=== PATIENT | female | born 1980 | race Caucasian/White ===

== ENCOUNTER 2017-11-21 08:44 | Outpatient (CLI) | payer OTHER ==
[~2017-11-21 08:44] MED LIST: ONDA4TAB6 PO
== END 2017-11-21 23:59 | disposition home or self-care (01) ==
LOC: RAD 08:44
PROVIDERS: ATTEND Nurse Practitioner Obstetrics & Gynecology
DX: O09.92 Supervision of high risk pregnancy, unspecified, second trimester (principal); Z3A.14 14 weeks gestation of pregnancy
CPT/HCPCS: 76801

== ENCOUNTER 2017-11-21 08:59 | Outpatient (CLI) | payer OTHER ==
[2017-11-21 11:25] LABS: BASOPHILS % (AUTO) 0.7 % (0-1); EOSINOPHILS # (AUTO) 0.2 X10'3 (0-0.9); EOSINOPHILS % (AUTO) 3.6 % (0-6); HEMATOCRIT 39.7 % (35.0-45.0); HEMOGLOBIN 13.7 g/dl (12.0-16.0); LYMPHOCYTES # (AUTO) 1.7 X10'3 (1.1-4.8); LYMPHOCYTES % (AUTO) 25.6 % (21-51); MEAN CORPUSCULAR HEMOGLOBIN 32.1 PG (27.0-31.0); MEAN CORPUSCULAR HGB CONC 34.7 % (33.0-36.5); MEAN CORPUSCULAR VOLUME 92.6 FL (78-98); MEAN PLATELET VOLUME 9.5 FL (7.4-10.4); MONOCYTES # (AUTO) 0.5 X10'3 (0-0.9); MONOCYTES % (AUTO) 7.4 % (2-12); NEUTROPHILS # (AUTO) 4.3 X10'3 (1.8-7.7); NEUTROPHILS % (AUTO) 62.7 % (42-75); PLATELET COUNT 180 X10'3 (140-440); RED BLOOD COUNT 4.28 X10'6 (4.20-5.60); RED CELL DISTRIBUTION WIDTH 12.5 % (11.5-14.5); WHITE BLOOD COUNT 6.8 X10'3 (4.5-11.0)
[2017-11-22 08:48] LABS: RPR Non Reactive (Non Reactive)
[2017-11-22 14:02] LABS: RUBELLA ANTIBODIES, IGG 6.49 index (Immune >0.99)
[2017-11-22 15:23] LABS: HBSAG SCREEN Negative (Negative)
== END 2017-11-21 23:59 | disposition home or self-care (01) ==
LOC: LAB 08:59
PROVIDERS: ATTEND Psychiatry & Neurology Neurology
DX: G40.109 Localization-related (focal) (partial) symptomatic epilepsy and epileptic syndromes with simple partial seizures, not intractable, without status epilepticus (principal)
CPT/HCPCS: 36415; 82607; 83036; 84439; 84443; 85025; 86592; 86762; 86885; 86900; 86901; 87340

== ENCOUNTER 2017-11-21 15:01 | Outpatient (CLI) | payer OTHER | END 2017-11-21 23:59 | disposition home or self-care (01) | LOC: LAB 15:01 | PROVIDERS: ATTEND Nurse Practitioner Obstetrics & Gynecology | DX: O20.0 Threatened abortion (principal); Z3A.00 Weeks of gestation of pregnancy not specified | CPT/HCPCS: 36415; 84702 ==

== ENCOUNTER 2017-11-27 15:34 | Outpatient (CLI) | payer OTHER | END 2017-11-27 23:59 | disposition home or self-care (01) | LOC: RAD 15:34 | PROVIDERS: ATTEND Nurse Practitioner Obstetrics & Gynecology | DX: O20.0 Threatened abortion (principal) | CPT/HCPCS: 76801 ==

== ENCOUNTER 2018-02-21 16:09 | Outpatient (CLI) | payer OTHER | END 2018-02-21 23:59 | disposition home or self-care (01) | LOC: LAB 16:09 | PROVIDERS: ATTEND Psychiatry & Neurology Neurology | DX: Z00.00 Encounter for general adult medical examination without abnormal findings (principal); G40.109 Localization-related (focal) (partial) symptomatic epilepsy and epileptic syndromes with simple partial seizures, not intractable, without status epilepticus | CPT/HCPCS: 36415; 82607; 84439; 84443 ==

== ENCOUNTER 2018-04-10 14:11 | Outpatient (CLI) | payer OTHER ==
[2018-04-10 14:57] LABS: CLARITY,URINE CLEAR (Clear); COLOR,URINE YELLOW (Yellow); GLUCOSE, URINE NEGATIVE (Neg); KETONES,URINE NEGATIVE (Neg); LEUKOCYTE ESTERASE ,URINE NEGATIVE (Neg); NITRITES, URINE NEGATIVE (Neg); OCCULT BLOOD,URINE NEGATIVE (Neg); PH,URINE 5.5 (4.8-8.0); PROTEIN,URINE NEGATIVE (Neg); UA COLLECTION TYPE CLN CATCH MIDSTREAM; UROBILINOGEN,URINE 0.2 E.U/dL (0.2-1.0)
[2018-04-10 15:07] LABS: BASOPHILS % (AUTO) 0.5 % (0-1); EOSINOPHILS # (AUTO) 0.3 X10'3 (0-0.9); EOSINOPHILS % (AUTO) 3.1 % (0-6); HEMATOCRIT 38.4 % (35.0-45.0); HEMOGLOBIN 13.1 g/dl (12.0-16.0); LYMPHOCYTES # (AUTO) 2.3 X10'3 (1.1-4.8); LYMPHOCYTES % (AUTO) 26.7 % (21-51); MEAN CORPUSCULAR HEMOGLOBIN 31.8 PG (27.0-31.0); MEAN CORPUSCULAR HGB CONC 34.2 % (33.0-36.5); MEAN CORPUSCULAR VOLUME 92.9 FL (78-98); MEAN PLATELET VOLUME 9.5 FL (7.4-10.4); MONOCYTES # (AUTO) 0.7 X10'3 (0-0.9); MONOCYTES % (AUTO) 7.8 % (2-12); NEUTROPHILS # (AUTO) 5.4 X10'3 (1.8-7.7); NEUTROPHILS % (AUTO) 61.9 % (42-75); PLATELET COUNT 206 X10'3 (140-440); RED BLOOD COUNT 4.13 X10'6 (4.20-5.60); RED CELL DISTRIBUTION WIDTH 12.3 % (11.5-14.5); WHITE BLOOD COUNT 8.7 X10'3 (4.5-11.0)
[2018-04-10 15:14] LABS: ALANINE AMINOTRANSFERASE 26 U/L (12-78); ALBUMIN 3.7 G/DL (3.4-5.0); ALKALINE PHOSPHATASE 71 IU/L (46-116); ANION GAP 8 (8-16); ASPARTATE AMINO TRANSFERASE 15 U/L (10-37); BILIRUBIN,TOTAL 0.3 MG/DL (0.1-1.0); BLOOD UREA NITROGEN 9 MG/DL (7-18); BUN/CREATININE RATIO 11.8 (6.6-38.0); CALCIUM 8.5 MG/DL (8.5-10.1); CHLORIDE 106 MMOL/L (99-107); CREATININE 0.76 MG/DL (0.40-0.90); GLUCOSE 99 MG/DL (70-104); POTASSIUM 3.3 MMOL/L (3.5-5.1); SODIUM 142 MMOL/L (135-145); TOTAL CARBON DIOXIDE 27.8 MMOL/L (24-32); TOTAL PROTEIN 7.4 G/DL (6.4-8.2); eGFR 86 ML/MIN
== END 2018-04-10 23:59 | disposition home or self-care (01) ==
LOC: LAB 14:11
PROVIDERS: ATTEND Family Medicine
DX: N20.2 Calculus of kidney with calculus of ureter (principal)
CPT/HCPCS: 36415; 80053; 81003; 85025

== ENCOUNTER 2018-04-18 15:42 | Outpatient (CLI) | payer OTHER | END 2018-04-18 23:59 | disposition home or self-care (01) | LOC: RAD 15:42 | PROVIDERS: ATTEND Family Medicine | DX: N20.2 Calculus of kidney with calculus of ureter (principal); F17.200 Nicotine dependence, unspecified, uncomplicated | CPT/HCPCS: 76775 ==

== ENCOUNTER 2019-08-31 11:15 | Outpatient (CLI) | payer OTHER ==
[2019-08-31 11:57] LABS: EOSINOPHILS # (AUTO) 0.2 X10'3 (0-0.9); HEMOGLOBIN 14.5 g/dl (12.0-16.0); LYMPHOCYTES # (AUTO) 2.1 X10'3 (1.1-4.8); RED CELL DISTRIBUTION WIDTH 12.2 % (11.5-14.5)
[2019-08-31 11:58] LABS: BASOPHILS # (AUTO) 0.1 X10'3 (0-0.2); EOSINOPHILS % (AUTO) 3.2 % (0-6); HEMATOCRIT 41.2 % (35.0-45.0); LYMPHOCYTES % (AUTO) 28.4 % (21-51); MEAN CORPUSCULAR HEMOGLOBIN 31.6 PG (27.0-31.0); MEAN CORPUSCULAR HGB CONC 35.1 g/dL (33.0-36.5); MEAN CORPUSCULAR VOLUME 89.9 FL (78-98); MEAN PLATELET VOLUME 9.4 FL (7.4-10.4); MONOCYTES # (AUTO) 0.7 X10'3 (0-0.9); MONOCYTES % (AUTO) 9.1 % (2-12); NEUTROPHILS # (AUTO) 4.2 X10'3 (1.8-7.7); NEUTROPHILS % (AUTO) 58.3 % (42-75); PLATELET COUNT 201 X10'3 (140-440); RED BLOOD COUNT 4.58 X10'6 (4.20-5.60); WHITE BLOOD COUNT 7.3 X10'3 (4.5-11.0)
[2019-08-31 12:07] LABS: RHEUM FACTOR QUAL REFLEX TITER NEGATIVE (Neg)
[2019-08-31 12:13] LABS: ALANINE AMINOTRANSFERASE 24 U/L (12-78); ALBUMIN 3.7 G/DL (3.4-5.0); ALKALINE PHOSPHATASE 83 IU/L (46-116); ANION GAP 10 (8-16); ASPARTATE AMINO TRANSFERASE 18 U/L (10-37); BILIRUBIN,TOTAL 0.3 MG/DL (0.1-1.0); BLOOD UREA NITROGEN 11 MG/DL (7-18); BUN/CREATININE RATIO 14.3 (6.6-38.0); C-REACTIVE PROTEIN 0.28 MG/DL (0.0-0.5); CALCIUM 8.5 MG/DL (8.5-10.1); CHLORIDE 106 MMOL/L (99-107); CHOL/HDL RATIO 3.1 (0.00-4.99); CHOLESTEROL 159 MG/DL (0-200); CREATININE 0.77 MG/DL (0.40-0.90); GLUCOSE 85 MG/DL (70-104); HDL CHOLESTEROL 51 MG/DL (35-60); LDL CHOLESTEROL 100 MG/DL (50-100); MAGNESIUM 1.9 MG/DL (1.5-2.4); POTASSIUM 4.1 MMOL/L (3.5-5.1); SODIUM 140 MMOL/L (135-145); TOTAL CARBON DIOXIDE 24.4 MMOL/L (24-32); TOTAL PROTEIN 7.5 G/DL (6.4-8.2); TRIGLYCERIDES 39 MG/DL (20-135); eGFR 84 ML/MIN
[2019-08-31 18:33] LABS: CLARITY,URINE CLEAR (Clear); COLOR,URINE YELLOW (Yellow); GLUCOSE, URINE NEGATIVE (Neg); KETONES,URINE NEGATIVE (Neg); LEUKOCYTE ESTERASE ,URINE NEGATIVE (Neg); NITRITES, URINE NEGATIVE (Neg); OCCULT BLOOD,URINE NEGATIVE (Neg); PH,URINE 5.5 (4.8-8.0); PROTEIN,URINE NEGATIVE (Neg); UA COLLECTION TYPE CLN CATCH MIDSTREAM; UROBILINOGEN,URINE 0.2 E.U/dL (0.2-1.0)
[2019-09-03 11:10] LABS: MICROALB/CRT, RATIO 8.7 mg/g creat (0.0-30.0)
[2019-09-03 15:18] LABS: ANTINUCLEAR ANTIBODIES Negative (Negative)
== END 2019-08-31 23:59 | disposition home or self-care (01) ==
LOC: LAB 11:15
PROVIDERS: ATTEND Family Medicine
DX: N20.2 Calculus of kidney with calculus of ureter (principal); G40.909 Epilepsy, unspecified, not intractable, without status epilepticus; R76.8 Other specified abnormal immunological findings in serum; J06.9 Acute upper respiratory infection, unspecified
CPT/HCPCS: 36415; 80053; 80061; 81003; 82043; 82570; 83735; 84550; 85025; 85651; 86038; 86140; 86430

== ENCOUNTER 2019-12-09 15:20 | Outpatient (CLI) | payer OTHER | END 2019-12-09 23:59 | disposition home or self-care (01) | LOC: RAD 15:20 | PROVIDERS: ATTEND Family Medicine | DX: M16.10 Unilateral primary osteoarthritis, unspecified hip (principal); G57.93 Unspecified mononeuropathy of bilateral lower limbs | CPT/HCPCS: 72110; 72148; 72220 ==

== ENCOUNTER 2020-03-16 10:47 | Outpatient (CLI) | payer OTHER | END 2020-03-16 23:59 | disposition home or self-care (01) | LOC: LAB 10:47 | PROVIDERS: ATTEND Psychiatry & Neurology Neurology | DX: G40.109 Localization-related (focal) (partial) symptomatic epilepsy and epileptic syndromes with simple partial seizures, not intractable, without status epilepticus (principal) | CPT/HCPCS: 36415; 82542 ==

== ENCOUNTER 2020-06-04 11:32 | Emergency (ER) | payer OTHER ==
[~2020-06-04] VITALS: Ht 165.1 cm; Wt 90.9 kg
[2020-06-04 13:16] VITALS: BP 118/70
== END 2020-06-04 13:18 | disposition home or self-care (01) ==
LOC: ER 11:33
DX: J06.9 Acute upper respiratory infection, unspecified (principal); Z20.828 Contact with and (suspected) exposure to other viral communicable diseases; M19.90 Unspecified osteoarthritis, unspecified site; G89.29 Other chronic pain; Z86.69 Personal history of other diseases of the nervous system and sense organs; Z72.89 Other problems related to lifestyle; Z79.899 Other long term (current) drug therapy
CPT/HCPCS: 36415; 99282

== ENCOUNTER 2020-07-09 12:08 | Outpatient (CLI) | payer BC | END 2020-07-09 23:59 | disposition home or self-care (01) | LOC: LAB 12:08 | PROVIDERS: ATTEND Psychiatry & Neurology Neurology | DX: G40.109 Localization-related (focal) (partial) symptomatic epilepsy and epileptic syndromes with simple partial seizures, not intractable, without status epilepticus (principal) | CPT/HCPCS: 36415; 80203; 82542 ==

== ENCOUNTER → 2020-11-19 | Outpatient (CLI) | payer BC ==
[2020-11-19 17:07] LABS: BASOPHILS % (AUTO) 0.6 % (0-1); EOSINOPHILS # (AUTO) 0.2 X10'3 (0-0.9); EOSINOPHILS % (AUTO) 2.5 % (0-6); HEMATOCRIT 45.3 % (35.0-45.0); HEMOGLOBIN 15.4 g/dl (12.0-16.0); LYMPHOCYTES # (AUTO) 1.8 X10'3 (1.1-4.8); LYMPHOCYTES % (AUTO) 27.4 % (21-51); MEAN CORPUSCULAR HEMOGLOBIN 30.8 PG (27.0-31.0); MEAN CORPUSCULAR VOLUME 90.5 FL (78-98); MEAN PLATELET VOLUME 9.5 FL (7.4-10.4); MONOCYTES # (AUTO) 0.6 X10'3 (0-0.9); NEUTROPHILS # (AUTO) 3.9 X10'3 (1.8-7.7); NEUTROPHILS % (AUTO) 60.5 % (42-75); PLATELET COUNT 212 X10'3 (140-440); RED CELL DISTRIBUTION WIDTH 11.8 % (11.5-14.5); WHITE BLOOD COUNT 6.5 X10'3 (4.5-11.0)
[2020-11-19 17:08] LABS: RHEUM FACTOR QUAL REFLEX TITER NEGATIVE (Neg)
[2020-11-19 17:14] LABS: COLOR,URINE YELLOW (Yellow); GLUCOSE, URINE NEGATIVE (Neg); KETONES,URINE 15 mg/dl (Neg); LEUKOCYTE ESTERASE ,URINE NEGATIVE (Neg); NITRITES, URINE NEGATIVE (Neg); OCCULT BLOOD,URINE NEGATIVE (Neg); PH,URINE 6.5 (4.8-8.0); PROTEIN,URINE NEGATIVE (Neg)
[2020-11-19 17:19] LABS: UA COLLECTION TYPE CLN CATCH MIDSTREAM
[2020-11-19 17:24] LABS: ALANINE AMINOTRANSFERASE 19 U/L (12-78); ALBUMIN 3.8 G/DL (3.4-5.0); ALBUMIN/GLOBULIN RATIO 0.9 (1.1-1.5); ALKALINE PHOSPHATASE 99 IU/L (46-116); ANION GAP 8 (8-16); ASPARTATE AMINO TRANSFERASE 15 U/L (10-37); BILIRUBIN,TOTAL 0.3 MG/DL (0.1-1.0); BLOOD UREA NITROGEN 12 MG/DL (7-18); BUN/CREATININE RATIO 14.6 (6.6-38.0); C-REACTIVE PROTEIN 0.21 MG/DL (0.0-0.5); CALCIUM 8.8 MG/DL (8.5-10.1); CHLORIDE 108 MMOL/L (99-107); CHOL/HDL RATIO 3.8 (0.00-4.99); CHOLESTEROL 197 MG/DL (0-200); CREATININE 0.82 MG/DL (0.40-0.90); GLUCOSE 99 MG/DL (70-104); HDL CHOLESTEROL 52 MG/DL (35-60); LDL CHOLESTEROL 132 MG/DL (50-100); MAGNESIUM 2.3 MG/DL (1.5-2.4); POTASSIUM 3.4 MMOL/L (3.5-5.1); SODIUM 143 MMOL/L (135-145); TOTAL CARBON DIOXIDE 26.8 MMOL/L (24-32); TRIGLYCERIDES 66 MG/DL (20-135); eGFR 77 ML/MIN
[2020-11-19 17:24] LABS: CLARITY,URINE SLIGHTLY CLOUDY (Clear)
[2020-11-19 17:25] LABS: BACTERIA,URINE 2+ /HPF (Neg); MUCUS STRANDS MANY /LPF (Neg); RBC,URINE NONE SEEN /HPF (0-2); SQUAMOUS EPITHELIAL CELL,UR MANY /LPF (FEW); WBC,URINE 0-4 /HPF (0-4)
[2020-11-21 16:02] LABS: MICROALB/CRT, RATIO 6 mg/g creat (0-29)
[2020-11-23 15:49] LABS: ANTINUCLEAR ANTIBODIES Negative (Negative)
== END | disposition home or self-care (01) ==
LOC: LAB 15:32
PROVIDERS: ATTEND Family Medicine
DX: Z00.01 Encounter for general adult medical examination with abnormal findings (principal); G40.909 Epilepsy, unspecified, not intractable, without status epilepticus; J06.9 Acute upper respiratory infection, unspecified; R76.8 Other specified abnormal immunological findings in serum
CPT/HCPCS: 36415; 80053; 80061; 81001; 82043; 82570; 83735; 83970; 84439; 84443; 84550; 85025; 85651; 86038; 86140; 86430

== ENCOUNTER 2020-11-25 06:23 | Emergency (ER) | payer BC ==
[~2020-11-25] VITALS: Ht 165.1 cm; Wt 90.9 kg
--- NOTE | 2020-11-25 08:22 | NUR ---
called patient's cell phone ([phone]) as she told me that she would be waiting out in her car in the parking lot for the results, the patient had left and went home because she had to use the restroom. Gave the patient the result over the phone. The patient was unable to sign the discharge papers because she had left.
--- NOTE | 2020-11-25 08:53 | NUR ---
patient came back because [facility] wanted a different COVID test ran, so when she came back I had the patient sign the original discharge paperwork.
== END 2020-11-25 08:28 | disposition home or self-care (01) ==
LOC: ER 06:24
DX: R43.9 Unspecified disturbances of smell and taste (principal); Z20.822 Contact with and (suspected) exposure to COVID-19; R51.9 Headache, unspecified; M19.90 Unspecified osteoarthritis, unspecified site; G89.29 Other chronic pain; Z72.89 Other problems related to lifestyle
CPT/HCPCS: 87635; 99283; C9803

== ENCOUNTER 2020-12-09 15:19 | Outpatient (CLI) | payer BC | END 2020-12-09 23:59 | disposition home or self-care (01) | LOC: RAD 15:19 | PROVIDERS: ATTEND Family Medicine | DX: M25.512 Pain in left shoulder (principal) | CPT/HCPCS: 73030 ==

== ENCOUNTER → 2021-06-11 | Outpatient (CLI) | payer BC ==
[2021-06-13 09:16] LABS: FSH, SERUM 4.2 mIU/mL (.); PROGESTERONE 0.1 ng/mL (.); PROLACTIN 15.5 ng/mL (4.8-23.3)
[2021-06-15 17:32] LABS: ESTRONE, SERUM 122 pg/mL (.)
== END | disposition home or self-care (01) ==
LOC: LAB 15:57
DX: N95.1 Menopausal and female climacteric states (principal); M25.532 Pain in left wrist; M25.531 Pain in right wrist; M79.641 Pain in right hand; M79.642 Pain in left hand
CPT/HCPCS: 36415; 73110; 73130; 82670; 82679; 83001; 84144; 84146; 84402; 84403; 84439; 84443

== ENCOUNTER 2022-01-24 13:58 | Day surgery (SDC) | payer BC ==
[~2022-01-24] VITALS: Ht 165.1 cm; Wt 100.0 kg
[2022-01-24 14:11] VITALS: BP 104/60
[2022-01-24] MEDS ORDERED: ZONI100C31 PO (14:46)
[2022-01-24] MEDS ORDERED: LAMO200T51 PO (14:46)
[2022-01-24] MEDS ORDERED: SERT-434 PO (14:46)
[2022-01-24] MEDS ORDERED: MULT-1085 PO (14:46)
[2022-01-24] MEDS ORDERED: ASCO500C17 PO (14:47)
[2022-01-24] MEDS ORDERED: FOLI0.8C PO (14:48)
[2022-01-24] MEDS ORDERED: fentaNYL/PF 50MCG/1 ML 2ML syringe ONE (15:09)
[2022-01-24] MEDS ORDERED: MIDAZolam 1 MG/ML 5ML VIAL ONE (15:10)
[2022-01-24 15:45] VITALS: BP 106/64
[2022-01-24 15:55] VITALS: BP 97/73
[2022-01-24 16:05] VITALS: BP 110/48
[2022-01-24 16:15] VITALS: BP 107/59
== END 2022-01-24 16:33 | disposition home or self-care (01) ==
LOC: GI LAB 13:58
PROVIDERS: ATTEND Internal Medicine Gastroenterology
DX: Z12.11 Encounter for screening for malignant neoplasm of colon (principal); K64.8 Other hemorrhoids; Z87.891 Personal history of nicotine dependence; Z80.0 Family history of malignant neoplasm of digestive organs
CPT/HCPCS: 45378; 99152; 99153; J2250; J3010; J7040; Z7512; A4620

== ENCOUNTER 2022-06-03 17:13 | Outpatient (CLI) | payer BC ==
[~2022-06-03 17:13] MED LIST changes: +ASCO500C17 PO; +FOLI0.8C PO; +LAMO200T51 PO; +MULT-1085 PO; -ONDA4TAB6 PO; +SERT-434 PO; +ZONI100C87 PO
== END 2022-06-03 23:59 | disposition home or self-care (01) ==
LOC: RAD 17:13
PROVIDERS: ATTEND Family Medicine
DX: M25.412 Effusion, left shoulder (principal)
CPT/HCPCS: 73221

== ENCOUNTER 2025-05-02 18:44 | Emergency (ER) | payer BC, MEDICAID ==
[~2025-05-02] VITALS: Ht 165.1 cm; Wt 103.0 kg
[2025-05-02 18:58] VITALS: BP 122/84; PULSE 65; O2SAT 98
--- NOTE | 2025-05-02 19:30 | Physician Documentation ---
History of Present Illness ~ Chief Complaint: Mechanical Fall Stated Complaint: LT ANKLE PAIN Time Seen by MD: 19:20 Primary Medical Doctor: DR. EVANS HPI Patient is seen today with complaints of pain of her left ankle just prior to arrival after slipping on some gravel going out to pasture. Patient complains of severe pain of her left ankle. She has no other concern or complaint at this time. Tetanus within 5 Years?: Yes Medication Reconciliation Allergies: Coded Allergies: No Known Allergies (Unverified , 05/02/25) Scheduled Ascorbic Acid (Vitamin C), 1 CAP PO DAILY, (Reported) Folic Acid (Folic Acid), 1 CAP PO DAILY, (Reported) Lamotrigine (Lamotrigine ER), 1 TAB PO DAILY, (Reported) Multivitamin (Multi Vitamin Daily), 1 TAB PO DAILY, (Reported) Sertraline HCl (Sertraline HCl), 1 TAB PO DAILY, (Reported) Zonisamide (Zonisamide), PO DAILY, (Reported) Scheduled PRN Hydrocodone Bit/Acetaminophen (Hydrocodone-Apap 10-325 Tablet), 1 TAB PO BID PRN for pain Past Medical History Past Medical History: Seizures, Arthritis, Chronic Back Pain Past Surgical History: no surgical history Alcohol Use: Sober Drug Use: none Lives with: Family Lives In: Home Occupation: employed Review of Systems Constitutional: Denies: chills, fever, weakness Eyes: Denies: pain, blurred vision ENT: Denies: ear pain, nose pain, throat pain, mouth pain Respiratory: Denies: cough, shortness of breath Cardiovascular: Denies: chest pain, palpitations Gastrointestinal: Denies: abdominal pain, nausea, vomiting Genitourinary: Denies: burning, dysuria Female Genitalia: Denies: vaginal discharge, pelvic pain Neurological: Denies: headache, dizziness Musculoskeletal: Denies: pain, swelling Integumentary: Denies: rash, lesions Allergic/Immunologic: Denies: hives, itching Hematologic/Lymphatic: Denies: no symptoms reported Psychiatric: Denies: depression, anxiety Physical Exam Vital Signs: Temperature: 98.2, Source: Temporal, Heart Rate: 65, Respiratory Rate: 16, BP: 122/84, Pulse Oximetry: 98, Weight: 103.000 Physical Exam General: Awake and Alert, no acute distress. HEENT: Conjunctiva pink, Sclera clear, Mucus Membranes moist. Neck: Supple without masses and tenderness. Resp: Unlabored. Lungs clear to auscultation bilaterally. Heart: Regular Rate and rhythm, normal S1 and S2 without murmur, rub or gallop. Musculoskeletal: Patient on exam has significant tenderness to palpation of the distal tibia and fibula. Patient has swelling noted. Patient is neurovascularly intact distally of the left foot. Patient is currently splinted. Extremities: No cyanosis,clubbing or edema. Skin: Warm and Dry. Progress Results/Orders Results/Orders Orders - PRIMO KENDRICK PAC Ankle, Complete(3vw Min) (05/02/25 19:24) Ortho Orders (05/02/25 19:53) Completed Orders - PRIMO KENDRICK PAC Hydrocodone/Apap 10/325 (Mckinnon 10/325mg (05/02/25 19:24) Ankle, Complete(3vw Min) (05/02/25 19:24) Ondansetron Disint. Tablet (Zofran Odt T (05/02/25 19:24) Medications Received in ER Medications (Trade) Dose Ordered Sig/Suzanne Route PRN Reason Start Time Stop Time Status Last Admin Dose Admin (Mckinnon 10/325mg tab) 1 tab ONCE STAT PO 05/02/25 19:24 05/02/25 19:27 DC 05/02/25 19:38 1 TAB (Zofran ODT tablet) 4 mg ONCE STAT PO 05/02/25 19:24 05/02/25 19:27 DC 05/02/25 19:36 4 MG Vital Signs 05/02/25 05/02/25 05/02/25 18:58 19:38 20:23 Temp 98.2 98.2 Pulse 65 Resp 16 16 B/P (MAP) 122/84 Pulse Ox 98 EKG/XRAY/CT/US/VASC/MRI Bone/Soft Tissue X-Ray (Ext.) : Additional Comment X-ray of the left ankle interpreted by myself today shows mildly displaced oblique Garcia type C fracture of distal fibula with associated mildly displaced fracture of medial malleolus with disruption of the ankle mortise and tibiofibular syndesmosis. DIAGNOSTIC RADIOLOGY Patient: TIFFANIE MONIQUE Medical Record: [id number] [facility] 1980, Age: 44 Sex: Female Location: ER Patient Status: REG ER Service Date/Time: 05/02/251923 Ordering Physician: PRIMO KENDRICK PAC Exam: ANKLE, COMPLETE(3VW MIN) CLINICAL INDICATION: left ankle trauma TECHNIQUE: DI ANKLE, COMPLETE(3VW MIN) Comparison: HAND, COMPLETE (3VW MIN) on DOS: 06/11/21, HAND, COMPLETE (3VW MIN) on DOS: 06/11/21 FINDINGS / IMPRESSION: There is mildly displaced oblique Garcia type C fracture of distal fibula with associated mildly displaced fracture of medial malleolus. There is disruption of the ankle mortise and tibiofibular syndesmosis. Electronically Signed by:JUAN JOSE ACHARYA MD Date & Time: 05/02/252006 Dictated by: JUAN JOSE ACHARYA MD Dictation date and time: 05/02/252006 Primary Care Provider: NO PRIMARY CARE PROVIDER cc: PRIMO KENDRICK PAC ~ Medical Decision Making Findings Patient is seen today with complaints of pain of her left ankle just prior to arrival after slipping on some gravel going out to pasture. Patient complains of severe pain of her left ankle. She has no other concern or complaint at this time. X-ray of the left ankle did show bimalleolar fracture of the left ankle. Patie nt will likely require surgery and will follow up with Dr. Jovel delivery specialist and/or Alison leon as soon as possible for further eval and treatment. Patient was placed in a short-leg splint with stirrup. Patient was given opiate pain med in the ambulance and patient was also given Mckinnon 10/325 mg by mouth with Zofran ODT 4 mg. Patient will be given a very short supply of Mckinnon 10/325 mg and will return to ED with any worsening, concerning or changing symptoms. Departure Disposition: 01 HOME / SELF CARE / HOMELESS Impression: Primary Impression: Ankle fracture Qualified Codes: S82.892A - Other fracture of left lower leg, initial encounter for closed fracture Condition: Improved Discharge Instructions: Ankle Fracture, [id number] Referrals: NO PRIMARY CARE PROVIDER (PCP) Prescriptions Hydrocodone Bit/Acetaminophen (Hydrocodone-Apap 10-325 Tablet) 10mg/325mg Tablet 1 TAB PO BID PRN for pain for 7 Days, #14 TAB Prov: PRIMO KENDRICK 05/02/25 Signature Scribe Signature: No scribe Attestation: No scribe PRIMO KENDRICK PAC May 02, 2025 19:30
[2025-05-02] MEDS: ondansetron 4mg rapidly disintigrating tab PO STA (19:36)
[2025-05-02 19:38] VITALS: RESP 16
[2025-05-02] MEDS: HYDROcodone/acetaminophen 10/325mg tab PO STA (19:38)
--- NOTE | 2025-05-02 20:09 | RADIOLOGY REPORT ---
CLINICAL INDICATION: left ankle trauma TECHNIQUE: DI ANKLE, COMPLETE(3VW MIN) Comparison: HAND, COMPLETE (3VW MIN) on DOS: 06/11/21, HAND, COMPLETE (3VW MIN) on DOS: 06/11/21 FINDINGS / IMPRESSION: There is mildly displaced oblique Garcia type C fracture of distal fibula with associated mildly displ aced fracture of medial malleolus. There is disruption of the ankle mortise and tibiofibular syndesmo sis.
[2025-05-02] MEDS ORDERED: HYDR-3973 PO (20:21)
[2025-05-02 20:23] VITALS: TEMP 98.2
[2025-05-03] MEDS ORDERED: ONDA-243 PO (12:16)
[2025-05-03] MEDS ORDERED: OXYC-150 PO (12:16)
== END 2025-05-02 20:35 | disposition home or self-care (01) ==
LOC: ER 18:45
DX: S82.52XA Displaced fracture of medial malleolus of left tibia, initial encounter for closed fracture (principal); M19.90 Unspecified osteoarthritis, unspecified site; Z79.899 Other long term (current) drug therapy; W01.0XXA Fall on same level from slipping, tripping and stumbling without subsequent striking against object, initial encounter; Y93.89 Activity, other specified; Y92.89 Other specified places as the place of occurrence of the external cause; Y99.8 Other external cause status
CPT/HCPCS: 29515; 73610; 99284

== ENCOUNTER 2025-05-03 11:56 | Emergency (ER) | payer MEDICAID ==
[~2025-05-03] VITALS: Ht 162.6 cm; Wt 97.7 kg
[~2025-05-03 11:56] MED LIST changes: +HYDR-3973 PO
[2025-05-03 12:04] VITALS: BP 124/64; PULSE 66; RESP 18; TEMP 98; O2SAT 99
[2025-05-03] MEDS ORDERED: OXYC-150 PO (12:16)
[2025-05-03] MEDS ORDERED: ONDA-243 PO (12:16)
--- NOTE | 2025-05-03 12:17 | Physician Documentation ---
HPI ~ General Chief Complaint: Medication Request Stated Complaint: "I THINK THE CAST IS TO TIGHT AND MEDS NOT WORKING Time Seen by MD: 12:08 Primary Medical Doctor: DR. EVANS Source: patient Mode of Arrival: POV Exam Limitations: no limitations History of Present Illness HPI Comments 44-year-old female with ankle fracture treated last night is needing pain management until she can see orthopedics on Monday. Patient is also requesting medication for nausea due to the pain medication. Medication Reconciliation Allergies: Coded Allergies: No Known Allergies (Unverified , 05/03/25) Scheduled Ascorbic Acid (Vitamin C), 1 CAP PO DAILY, (Reported) Folic Acid (Folic Acid), 1 CAP PO DAILY, (Reported) Lamotrigine (Lamotrigine ER), 1 TAB PO DAILY, (Reported) Multivitamin (Multi Vitamin Daily), 1 TAB PO DAILY, (Reported) Sertraline HCl (Sertraline HCl), 1 TAB PO DAILY, (Reported) Zonisamide (Zonisamide), PO DAILY, (Reported) Scheduled PRN Hydrocodone Bit/Acetaminophen (Hydrocodone-Apap 10-325 Tablet), 1 TAB PO BID PRN for pain Past Medical History Past Medical History: Seizures, Arthritis, Chronic Back Pain Past Surgical History: no surgical history Alcohol Use: Sober Drug Use: none Lives with: Family Lives In: Home Occupation: employed Review of Systems All Other Systems at this time: Reviewed and Negative Physical Exam Physical Exam Vital Signs: RN Vital Signs have been reviewed: Yes, Temperature: 98.0, Source: Oral, Heart Rate: 66, Respiratory Rate: 18, BP: 124/64, Pulse Oximetry: 99, Weight: 97.730 Physical Exam General: Alert, no apparent distress. Extremities: Normal range of motion, no deformity. Splint in place to the left lower extremity Neurologic: Oriented x4. Psychiatric: Normal mood and affect. Skin: Normal color, warm and dry. No edema, no ecchymosis. Progress Results/Orders Results/Orders Vital Signs 05/03/25 12:04 Temp 98.0 Pulse 66 Resp 18 B/P (MAP) 124/64 Pulse Ox 99 Medical Decision Making Findings Reviewed old records. Medications for scribe for pain management until seen by ortho follow up with orthopedics and primary care Departure Time of Disposition: 12:14 Disposition: 01 HOME / SELF CARE / HOMELESS Impression: Primary Impression: Ankle fracture Additional Impression: Pain Condition: Stable Discharge Instructions: Medicine Refill at the Emergency Department Additional Instructions: Follow up as we discussed with orthopedics on Monday and primary care. Take pain meds as prescribed. Follow up as needed Referrals: NO PRIMARY CARE PROVIDER (PCP) Prescriptions ONDANSETRON ODT 4mg tablet (ONDANSETRON ODT) 4 Mg Tab.rapdis 1 TABLET PO Q6H PRN for nausea/vomiting, #16 TABLET Prov: YAZ VILLAGOMEZ NP 05/03/25 Oxycodone HCl/Acetaminophen (Percocet 10-325 mg Tablet) 10 Mg-325 Mg Tablet 1 TAB PO TID PRN PRN for pain for 5 Days, #15 TAB 0 Refills Prov: YAZ VILLAGOMEZ NP 05/03/25 Education Educated: Patient Educated regarding: diagnosis, treatment Signature Scribe Signature: No scribe Attestation: The note accurately reflects work and decisions made by me.Yaz HASKINS 05/03/25 12:17 YAZ VILLAGOMEZ NP May 03, 2025 12:17
== END 2025-05-03 13:04 | disposition home or self-care (01) ==
LOC: ER 11:56
DX: S82.892A Other fracture of left lower leg, initial encounter for closed fracture (principal); M19.90 Unspecified osteoarthritis, unspecified site; X58.XXXA Exposure to other specified factors, initial encounter; Y93.89 Activity, other specified; Y92.89 Other specified places as the place of occurrence of the external cause; Y99.8 Other external cause status
CPT/HCPCS: 99283

== ENCOUNTER 2025-05-19 13:02 | Day surgery (SDC) | payer OTHER ==
[2025-05-16 13:54] LABS: LEUKOCYTE ESTERASE ,URINE TRACE (Neg); NITRITES, URINE NEGATIVE (Neg); OCCULT BLOOD,URINE NEGATIVE (Neg)
[2025-05-16 13:55] LABS: MEAN PLATELET VOLUME 8.4 FL (7.4-10.4); PRE OP HEMATOCRIT 38.9 % (35.0-45.0); PRE OP HEMOGLOBIN 13.7 g/dL (12.0-16.0); PRE OP PLATELET COUNT 297 X10'3 (140-440); PRE OP WHITE BLOOD COUNT 8.5 10'3 (4.8-10.8); RED CELL DISTRIBUTION WIDTH 12.0 % (11.5-14.5)
[2025-05-16 14:00] LABS: UA COLLECTION TYPE CLN CATCH MIDSTREAM
[2025-05-16 14:04] LABS: HCG SERUM QL NEGATIVE
[2025-05-16 14:08] LABS: CREATININE 0.74 MG/DL (0.40-0.90); PRE OP ALT 28 U/L (30-65); PRE OP ANION GAP 7 (8-16); PRE OP AST 20 U/L (10-37); PRE OP BILIRUB, TOTAL 0.3 MG/DL (0.0-1.0); PRE OP GLUCOSE 88 MG/DL (70-104); PRE OP POTASSIUM 3.7 MMOL/L (3.4-5.1); PRE OP SODIUM 139 MMOL/L (135-145); SQUAMOUS EPITHELIAL CELL,UR MANY /LPF (FEW); TOTAL CARBON DIOXIDE 27.7 MMOL/L (24-32); eGFR 85 ML/MIN
[~2025-05-19] VITALS: Ht 165.1 cm; Wt 99.9 kg
[2025-05-19] VITALS (10 sets, daily range): BP systolic 110–129; BP diastolic 58–89; PULSE 72–99; RESP 11–23; TEMP 98.6; O2SAT 94–100
[2025-05-19] MEDS: ceFAZolin 2gm/dext,iso 50mL 50 ML IV ONE (05:30)
[~2025-05-19 13:02] MED LIST changes: -ASCO500C17 PO; -FOLI0.8C PO; +HYDR-3964 PO; -HYDR-3973 PO; -MULT-1085 PO; -SERT-434 PO; +VALP250S26 PO; -ZONI100C87 PO; +enalaprilat 1.25mg/ml 2ml vial IV PRN; +labetalol 20mg/4ml (5mg/ml) syringe IV PRN; +meperidine/PF 25mg/ml syringe IV PRN; +morphine 4 MG/ML inj SYRINge IV PRN; +ondansetron/PF 4mg/2ml inj IV PRN; +ringers solution, lacted 1,000 ML IV SCH
[2025-05-19] MEDS: ringers solution, lacted 1,000 ML IV SCH (13:40)
[2025-05-19] MEDS ORDERED: bacitracin 15gm ointment TP ONE (14:08)
[2025-05-19] MEDS ORDERED: fentaNYL/PF 50MCG/1 ML 2ML syringe ONE (16:44)
[2025-05-19] MEDS ORDERED: MIDAZolam 1 MG/ML 5ML VIAL ONE (16:45)
[2025-05-19] MEDS ORDERED: BUPIVAcaine/PF 7.5mg/ml (0.75%) 10ml vial ONE (16:58)
[2025-05-19] MEDS ORDERED: LIDOcaine 1%/PF 5ML 10 MG/ML VIAL ONE (16:58)
[2025-05-19] MEDS ORDERED: propofol inj 20 ML IV ONE (17:06)
[2025-05-19] MEDS ORDERED: dexamethasone sod phosphate 4mg/ml inj. ONE (17:06)
[2025-05-19] MEDS ORDERED: ROPIVAcaine 0.5% (5mg/ml) 30ml vial ONE (17:07)
[2025-05-19] MEDS ORDERED: ondansetron/PF 4mg/2ml inj ONE (17:07)
--- NOTE | 2025-05-19 17:36 | ANESTHESIA RECORDS ---
Nerve Block Providers to CC ~ Diagnosis: Nerve Block requested by: RICHY MARTÍNEZ DPKelsea Neuraxial/Peripheral Nerve Block requested for Post-operative analgesia by Physician above DIAGNOSIS: Post-operative pain. (Body Area) Shoulder: [ ] Arm: [ ] Hand: [ ] Hip: [ ] Knee: [ ] Ankle: [ Left ] Foot: [ ] Leg: [ Left ] Abdomen: [ ] Other: [ ] Post-operative pain expected to be/is inadequately managed by oral or IV medicines. Regional anesthetic expected to facilitate rehabilitation and/or discharge from facility. Other:[ ] Procedure Performed: Femoral / Saphenous: Left Popliteal Lateral: Left Time out Done?: Yes Time of Time out: 16:42 Procedure Details: PROCEDURE DETAILS: Risks, benefits and alternatives explained Informed consent obtained, and patient wishes to proceed Conscious sedation with indicated monitors Patient positioned, pertinent anatomy defined, sterile technique used Needle used: [ ] 3 1/8 inch Stimuplex Ultra 22ga [x ] 4 inch Stimuplex Ultra 20ga [ ] 6 inch Stimuplex Ultra 20ga [ ] 6 inch, Quikbloc over the needle catheter set 20ga [ ] 4 inch Quikbloc over the needle catheter set 20ga [ ]Other: [ ] Loss of twitch @ [ 0.35___]mA [x ] Single Injection [ ] Catheter Ultrasound Guidance Used: [ x] Yes [ ] No Attempts:[ once ] Medicines injected: [x ]Clonidine Amt:[__100 mcgs ] [x ]Dexamethasone Amt:[__4 mgs ] [ x ]Ropivacaine Amt:[___0.5% 30 cc ] [x ]Bupivacaine Amt:[____0.375% 16 cc ] [ ]Lidocaine Amt:[ ] [ ]Exparel 1.33%:[ ] [ ]Epinephrine Amt[ ] [ ]Other: [ ] Intermittent aspiration during local anesthetic administration No symptoms of intraneural or intravenous injection Patient tolerated procedure well Comments Left Popliteal fossa Block Pt in Rt lateral position with Left Leg flexed at 90 Degrees. Lateral approach. Ultrasound probe placed back of thigh 2 inches above the knee joint. Easy visualization of the Sciatic nerve. 1% xylocaine local anesthetic. Easy visualization of Spreading of local anesthetic anterior and posterior to the Sciatic nerve sub paraneurally inside sciatic nerve sheath. Meaningful conversation t throughout. No Pain or discomfort during injection. Lt Adductor Canal blk Procedure done before surgery under General anesthesia. Pt supine with Lt leg rotated to Lt slightly. Easy visualization of Adductor Canal with ultra sound anterolateral to Femoral artery at the junction of upper and middle third of thigh. Able to see the tip of the needle and injected local anesthetic with the ultrasound. LANIE LEE MD May 19, 2025 17:36
== END 2025-05-19 20:13 | disposition home or self-care (01) ==
LOC: PAS 13:02
PROVIDERS: ATTEND Podiatrist Foot & Ankle Surgery
DX: S82.842A Displaced bimalleolar fracture of left lower leg, initial encounter for closed fracture (principal); S93.432A Sprain of tibiofibular ligament of left ankle, initial encounter; M25.472 Effusion, left ankle; G89.18 Other acute postprocedural pain; G40.909 Epilepsy, unspecified, not intractable, without status epilepticus; G47.30 Sleep apnea, unspecified; Z87.891 Personal history of nicotine dependence; Z79.1 Long term (current) use of non-steroidal anti-inflammatories (NSAID); Z79.82 Long term (current) use of aspirin; Z79.891 Long term (current) use of opiate analgesic; Z79.899 Other long term (current) drug therapy; Z90.721 Acquired absence of ovaries, unilateral; X58.XXXA Exposure to other specified factors, initial encounter; Y93.89 Activity, other specified; Y92.89 Other specified places as the place of occurrence of the external cause; Y99.8 Other external cause status
CPT/HCPCS: 27814; 27829; 36415; 64445; 64447; 73610; 80053; 81001; 82948; 84703; 85025; A6223; C1713; J1100; J2175; J2250; J2405; J2704; J2795; J3010; J3490; J7030; J7120; Z7506; Z7508; Z7512; 76000; A4618; A6253; A6449; A7000